=== PATIENT | female | born 1945 | race Asian ===

== ENCOUNTER 2017-12-14 20:13 | Emergency (ER) | payer SELFPAY ==
[~2017-12-14] VITALS: Ht 165.1 cm; Wt 72.6 kg
[2017-12-14 21:26] LABS: Basophils # (auto) 0 uL; Basophils % (auto) 0.3 % (0.0-2.0); Eosinophils # (auto) 0.1 uL; Eosinophils % (auto) 0.6 % (0.0-7.0); Hematocrit 37.8 % (36.0-46.0); Hemoglobin 12.5 g/dL (12.2-16.2); Lymphocytes # (auto) 1.8 uL; Lymphocytes % (auto) 13.2 % (10.0-50.0); Mean Corpuscular Hemoglobin 30.9 pg (28.0-32.0); Mean Corpuscular Hgb Conc. 33.2 g/dL (32.0-36.0); Mean Corpuscular Volume 93.1 fL (80.0-100.0); Monocytes # (auto) 0.8 uL; Monocytes % (auto) 5.7 % (0.0-12.0); Neutrophils # (auto) 10.7 uL; Neutrophils % (auto) 80.2 % (37.0-80.0); Nucleated Red Blood Cells % 0.2 %; Platelet Count (auto) 267 10^3/uL (140-450); Red Blood Cells 4.06 10^6/uL (4.0-5.20); Red Cell Distribution Width 13.6 % (11.8-14.3); White Blood Cell 13.3 10^3/uL (4.4-10.8)
[2017-12-14] MEDS ORDERED: KETOROLAC TROMETH 30 MG/ML 1ML VIAL IV ONE (21:30)
[2017-12-14] MEDS ORDERED: fentaNYL CITRATE 100 MCG/2 ML VL IV ONE ×2 (21:30→23:00)
[2017-12-14 21:46] LABS: Albumin 3.9 g/dL (3.4-5.0); Calcium 8.8 mg/dL (8.5-10.1); Potassium 4.4 mmol/L (3.5-5.1)
[2017-12-14 21:49] LABS: Bilirubin, Total 0.5 mg/dL (0.2-1.0); Total Protein 7.6 g/dL (6.4-8.2)
[2017-12-14] MEDS ORDERED: LIDOCAINE 1% (LOCAL ANESTH.) PF 5ml SDV ONE ×2 (21:50→22:22)
[2017-12-14] MEDS ORDERED: LIDOCAINE 1% (LOCAL ANESTH.) PF 5ml SDV IJ ONE (22:00)
[2017-12-14 22:32] VITALS: BP 123/74
[2017-12-14] MEDS ORDERED: TETANUS-DIPTH-ACEL PERTUSSIS 0.5ML SYRG IM ONE (23:00)
== END 2017-12-14 23:02 | disposition home or self-care (01) ==
LOC: EDBD 20:13 → ER 20:18
DX: S81.812A Laceration without foreign body, left lower leg, initial encounter (principal); S81.811A Laceration without foreign body, right lower leg, initial encounter; S21.219A Laceration without foreign body of unspecified back wall of thorax without penetration into thoracic cavity, initial encounter; S41.112A Laceration without foreign body of left upper arm, initial encounter; S41.111A Laceration without foreign body of right upper arm, initial encounter; S71.112A Laceration without foreign body, left thigh, initial encounter; S71.111A Laceration without foreign body, right thigh, initial encounter; W54.0XXA Bitten by dog, initial encounter; Y93.89 Activity, other specified; Y92.89 Other specified places as the place of occurrence of the external cause; Y99.8 Other external cause status
CPT/HCPCS: 12005; 36415; 80053; 85025; 90471; 90715; 96374; 96375; 96376; 99284; J1885; J3010; J7030

== ENCOUNTER 2017-12-23 12:49 | Emergency (ER) | payer MEDICARE ==
[~2017-12-23] VITALS: Ht 154.9 cm; Wt 64.4 kg
[2017-12-23] MEDS ORDERED: cefTRIAXone SOD 1,000 MG VL IM ONE (16:30)
[2017-12-23 17:03] VITALS: BP 142/82
== END 2017-12-23 17:00 | disposition home or self-care (01) ==
LOC: ER 12:57
DX: S81.032A Puncture wound without foreign body, left knee, initial encounter (principal); E11.9 Type 2 diabetes mellitus without complications; X58.XXXA Exposure to other specified factors, initial encounter; Y93.89 Activity, other specified; Y92.89 Other specified places as the place of occurrence of the external cause; Y99.8 Other external cause status
CPT/HCPCS: 96372; 99283; J0696

== ENCOUNTER 2017-12-25 09:55 | Emergency (ER) | payer MEDICARE ==
[~2017-12-25] VITALS: Ht 167.6 cm; Wt 64.4 kg
[2017-12-25 10:06] VITALS: BP 119/72
[2017-12-25] MEDS ORDERED: cefTRIAXone SOD 1,000 MG VL IM ONE (12:00)
[2017-12-25] MEDS ORDERED: LIDOCAINE 1% (LOCAL ANESTH.) PF 5ml SDV IJ ONE (12:00)
[2017-12-25] MEDS ORDERED: LIDOCAINE 1% HCL (LOCAL ANESTH.) INJ 20ML MDV ONE (12:02)
== END 2017-12-25 12:30 | disposition home or self-care (01) ==
LOC: ER 10:01
DX: S80.912D Unspecified superficial injury of left knee, subsequent encounter (principal); I10 Essential (primary) hypertension; E11.9 Type 2 diabetes mellitus without complications; X58.XXXD Exposure to other specified factors, subsequent encounter
CPT/HCPCS: 96372; 99283; J0696; J2001

== ENCOUNTER 2017-12-31 08:51 | Emergency (ER) | payer MEDICARE, MEDICAID ==
[~2017-12-31] VITALS: Ht 152.4 cm; Wt 70.3 kg
[2017-12-31] MEDS ORDERED: cefTRIAXone SOD 1,000 MG VL IM ONE (10:00)
[2017-12-31 10:03] VITALS: BP 125/73
== END 2017-12-31 10:24 | disposition home or self-care (01) ==
LOC: ER 08:52
DX: S81.012D Laceration without foreign body, left knee, subsequent encounter (principal); E11.9 Type 2 diabetes mellitus without complications; I10 Essential (primary) hypertension; W54.0XXD Bitten by dog, subsequent encounter
CPT/HCPCS: 29505; 96372; 99283; J0696

== ENCOUNTER 2021-03-02 08:13 | Emergency (ER) | payer BC, MEDICAID, OTHER ==
[~2021-03-02] VITALS: Ht 154.9 cm; Wt 63.5 kg
[~2021-03-02 08:13] MED LIST: ASPI-231 PO; ATOR10TA52 PO; CHOL20007 OR; LEVO-28 PO; METF-370 PO; VALS1TAB57 PO
[2021-03-02] MEDS ORDERED: IOHEXOL 300 MG/ML 100ML BOTTLE IJ ONE (09:25)
[2021-03-02 11:48] VITALS: BP 145/87
== END 2021-03-02 11:44 | disposition home or self-care (01) ==
LOC: ER 08:13 → EDBD 08:13 → ER 11:44
DX: S09.8XXA Other specified injuries of head, initial encounter (principal); M54.2 Cervicalgia; E11.9 Type 2 diabetes mellitus without complications; I10 Essential (primary) hypertension; V43.62XA Car passenger injured in collision with other type car in traffic accident, initial encounter; Y93.89 Activity, other specified; Y92.488 Other paved roadways as the place of occurrence of the external cause; Y99.8 Other external cause status
CPT/HCPCS: 70450; 72125; 74177; 99285; Q9967

== ENCOUNTER 2022-05-07 15:36 | Emergency (ER) | payer MEDICARE, MEDICAID ==
[~2022-05-07] VITALS: Ht 152.4 cm; Wt 54.5 kg
[~2022-05-07 15:36] MED LIST changes: -ASPI-231 PO; +ASPI1TAB20 PO
[2022-05-07 16:11] VITALS: BP 159/89
== END 2022-05-07 19:51 | disposition home or self-care (01) ==
LOC: EDBD 15:36 → EDUNIT# 15:36 → ER 15:36
DX: S00.03XA Contusion of scalp, initial encounter (principal); E11.9 Type 2 diabetes mellitus without complications; E78.5 Hyperlipidemia, unspecified; W01.0XXA Fall on same level from slipping, tripping and stumbling without subsequent striking against object, initial encounter; Y93.01 Activity, walking, marching and hiking; Y92.89 Other specified places as the place of occurrence of the external cause; Y99.8 Other external cause status
CPT/HCPCS: 70450; 72125